=== PATIENT | female | born 1980 | race Caucasian/White ===

== ENCOUNTER 2017-11-07 12:14 | Emergency (ER) | payer MEDICARE, BC ==
[2017-11-07] MEDS ORDERED: HYDROCODONE/APAP 5/325MG TABLET PO ONE (12:48)
--- NOTE | 2017-11-07 12:54 | Emergency Department Record ---
History of Present Illness - General Chief Complaint: Knee injury Stated Complaint: FALL/ R KNEE INJURY Time Seen by Provider: 11/07/17 12:33 Source: Patient Mode of Arrival: Ambulatory Limitations: No limitations - History of Present Illness Initial Comments: pt stepped into an uncovered vent and twisted her knee yesterday. she felt a crack. she has difficulty bearing weight. Complaint: Knee injury Onset/Timin -: Days(s) Injury: Knee: Right Type of Injury: Blunt Place: Home Severity: Mild Severity scale (1-10): 8 Improves With: Immobilization Worsens With: Weight bearing Context: Fall, Walking Associated Symptoms: Unable to bear weight Treatments Prior to Arrival: Cold therapy - Related Data Previous Rx's Medication Instructions Recorded Hydrocodone/Acetaminophen [[place] 1 each PO Q6HR #7 tablet 11/07/17 5-325 Tablet] Allergies Allergy/AdvReac Type Severity Reaction Status Date / Time adhesive tape Allergy RASH Verified 11/07/17 12:45 bee venom protein (honey bee) Allergy ANAPHYLAXIS Verified 11/07/17 12:45 Cephalosporins Allergy PT UNSURE Verified 11/07/17 12:45 OF REACTION chlorthalidone Allergy ANAPHYLAXIS Verified 11/07/17 12:45 [From [place]] doxycycline Allergy PT UNSURE Verified 11/07/17 12:45 OF REACTION erythromycin base Allergy PT UNSURE Verified 11/07/17 12:45 OF REACTION iodine Allergy ANAPHYLAXIS Verified 11/07/17 12:45 Latex, Natural Rubber Allergy HIVES Verified 11/07/17 12:45 lisinopril Allergy HYPERSENSIT Verified 11/07/17 12:45 IVITY montelukast [From Singulair] Allergy HIVES Verified 11/07/17 12:45 nickel Allergy RASH Verified 11/07/17 12:45 Penicillins Allergy PT UNSURE Verified 11/07/17 12:41 OF REACTION shellfish derived Allergy ANAPHYLAXIS Verified 11/07/17 12:45 Travel Screening - Travel/Exposure Within Last 30 Days Have you traveled within the last 30 days?: No - Travel/Exposure Within Last Year Have you traveled outside the [place] in the last year?: No - Additonal Travel Details Have you been exposed to anyone with a communicable illness?: No - Travel Symptoms Symptom Screening: None Review of Systems Reviewed: No additional complaints except as noted below Constitutional: Reports: As per HPI. Denies: Chills, Fever, Malaise, Night sweats, Weakness, Weight change Eyes: Reports: As per HPI. Denies: Eye discharge, Eye pain, Photophobia, Vision change ENT: Reports: As per HPI. Denies: Congestion, Dental pain, Ear pain, Epistaxis , Hearing loss, Throat pain Respiratory: Reports: As per HPI. Denies: Cough, Dyspnea, Hemoptysis, Stridor, Wheezes Cardiovascular: Reports: As per HPI. Denies: Arrhythmia, Chest pain, Dyspnea on exertion, Edema, Murmurs, Orthopnea, Palpitations, Paroxysmal nocturnal dyspnea, Rheumatic Fever, Syncope Endocrine: Reports: As per HPI. Denies: Fatigue, Heat or cold intolerance, Polydipsia, Polyuria Gastrointestinal: Reports: As per HPI. Denies: Abdominal pain, Constipation, Diarrhea, Hematemesis, Hematochezia, Melena, Nausea, Vomiting Genitourinary: Reports: As per HPI. Denies: Abnormal menses, Discharge, Dyspareunia, Dysuria, Frequency, Hematuria, Incontinence, Retention, Urgency Musculoskeletal: Reports: As per HPI. Denies: Arthralgia, Back pain, Gout, Joint swelling, Myalgia, Neck pain Skin: Reports: As per HPI. Denies: Bruising, Change in color, Change in hair/ nails, Lesions, Pruritus, Rash Neurological: Reports: As per HPI. Denies: Abnormal gait, Confusion, Headache, Numbness, Paresthesias, Seizure, Tingling, Tremors, Vertigo, Weakness Psychiatric: Reports: As per HPI. Denies: Anxiety, Auditory hallucinations, Depression, Homicidal thoughts, Suicidal thoughts, Visual hallucinations Hematological/Lymphatic: Reports: As per HPI. Denies: Anemia, Blood Clots, Easy bleeding, Easy bruising, Swollen glands Past Medical History - SOCIAL HISTORY Smoking Status: Current every day smoker Alcohol Use: Rare Drug Use: None - RESPIRATORY Hx Respiratory Disorders: Yes Hx Asthma: Yes - CARDIOVASCULAR Hx Cardio Disorders: Yes Hx Abnormal EKG: Yes Comment:: POTS - NEURO Hx Neuro Disorders: Yes Comment:: TBI left atrophy frontal lobe, anterior pituitary gland - GI Hx GI Disorders: Yes Hx Hiatal Hernia: Yes Hx Irritable Bowel: Yes Hx Ulcer: Yes - Hx Genitourinary Disorders: No - ENDOCRINE Hx Endocrine Disorders: Yes Hx Diabetes: Yes (T2) Hx Thyroid Disease: No - MUSCULOSKELETAL Hx Musculoskeletal Disorders: Yes Hx Back Injury: Yes (C1 C2 fracture L2-S1 Fracture) - PSYCH Hx Psych Problems: Yes Hx Anxiety: Yes Hx Depression: Yes Comment:: PTSD/ADD - HEMATOLOGY/ONCOLOGY Hx Hematology/Oncology Disorders: Yes Hx Anemia: Yes Family Medical History Any Significant Family History?: No Physical Exam - General General Appearance: Alert, Oriented x3, Cooperative, Mild distress - Head Head exam: Normal inspection - Eye Eye exam: Normal appearance, PERRL, EOMI Pupils: Normal accommodation - ENT ENT exam: Normal exam, Mucous membranes moist, Normal external ear exam, Normal orophraynx Ear exam: Normal external inspection. negative: External canal tenderness Nasal Exam: Normal inspection. negative: Discharge, Sinus tenderness Mouth exam: Normal external inspection, Tongue normal Teeth exam: Normal inspection. negative: Dental caries Throat exam: Normal inspection. negative: Tonsillar erythema, Tonsillar exudate - Neck Neck exam: Normal inspection, Full ROM. negative: Tenderness - Respiratory Respiratory exam: Normal lung sounds bilaterally. negative: Respiratory distress - Cardiovascular Cardiovascular Exam: Regular rate, Normal rhythm, Normal heart sounds - GI/Abdominal GI/Abdominal exam: Soft, Normal bowel sounds. negative: Tenderness - Rectal Rectal exam: Deferred - exam: Deferred - Extremities Extremities exam: Normal inspection, Full ROM, Joint swelling, Normal capillary refill, Tenderness - Back Back exam: Reports: Normal inspection, Full ROM. Denies: Muscle spasm, Rash noted, Tenderness - Neurological Neurological exam: Alert, CN II-XII intact, Normal gait, Oriented X3 - Psychiatric Psychiatric exam: Normal affect, Normal mood - Skin Skin exam: Dry, Intact, Normal color, Warm Course Vital Signs 11/07/17 12:27 Temperature 98.8 F Pulse Rate 110 H Respiratory 20 Rate Blood Pressure 124/84 Pulse Ox 97 Disposition Disposition: Discharge Clinical Impression: ACL (anterior cruciate ligament) tear Qualifiers: Encounter type: initial encounter Laterality: right Qualified Code(s): S83.511A - Sprain of anterior cruciate ligament of right knee, initial encounter Disposition: Home, Self-Care Condition: (1) Good Instructions: ACL Injury (ED), Knee Immobilizer (ED) Additional Instructions: follow up with dr selby. return sooner if worse. ice and elevate. motrin for pain Prescriptions: Hydrocodone/Acetaminophen [[place] 5-325 Tablet] 1 each PO Q6HR #7 tablet Forms: Patient Portal Access Quality - Quality Measures Quality Measures: N/A - Blood Pressure Screening Does Patient Have Any of the Following: No Blood Pressure Classification: Pre-Hypertensive BP Reading Systolic Measurement: 124 Diastolic Measurement: 84 Screening for High Blood Pressure: < Pre-Hypertensive BP, F/U Documented > [ G8950] Pre-Hypertensive Follow-up Interventions: Follow-up with rescreen every year.
--- NOTE | 2017-11-07 14:22 | Emergency Department Record ---
History of Present Illness - General Chief Complaint: Knee injury Stated Complaint: FALL/ R KNEE INJURY Time Seen by Provider: 11/07/17 12:33 Source: Patient Mode of Arrival: Ambulatory Limitations: No limitations - History of Present Illness Onset/Timin -: Days(s) Injury: Knee: Right Type of Injury: Blunt Place: Home Severity: Mild Severity scale (1-10): 8 Improves With: Immobilization Worsens With: Weight bearing Context: Fall, Walking Associated Symptoms: Unable to bear weight Treatments Prior to Arrival: Cold therapy - Related Data Previous Rx's Medication Instructions Recorded Hydrocodone/Acetaminophen [[place] 1 each PO Q6HR #7 tablet 11/07/17 5-325 Tablet] Allergies Allergy/AdvReac Type Severity Reaction Status Date / Time adhesive tape Allergy RASH Verified 11/07/17 12:45 bee venom protein (honey bee) Allergy ANAPHYLAXIS Verified 11/07/17 12:45 Cephalosporins Allergy PT UNSURE Verified 11/07/17 12:45 OF REACTION chlorthalidone Allergy ANAPHYLAXIS Verified 11/07/17 12:45 [From [place]] doxycycline Allergy PT UNSURE Verified 11/07/17 12:45 OF REACTION erythromycin base Allergy PT UNSURE Verified 11/07/17 12:45 OF REACTION iodine Allergy ANAPHYLAXIS Verified 11/07/17 12:45 Latex, Natural Rubber Allergy HIVES Verified 11/07/17 12:45 lisinopril Allergy HYPERSENSIT Verified 11/07/17 12:45 IVITY montelukast [From Singulair] Allergy HIVES Verified 11/07/17 12:45 nickel Allergy RASH Verified 11/07/17 12:45 Penicillins Allergy PT UNSURE Verified 11/07/17 12:41 OF REACTION shellfish derived Allergy ANAPHYLAXIS Verified 11/07/17 12:45 Travel Screening - Travel/Exposure Within Last 30 Days Have you traveled within the last 30 days?: No - Travel/Exposure Within Last Year Have you traveled outside the [place] in the last year?: No - Additonal Travel Details Have you been exposed to anyone with a communicable illness?: No - Travel Symptoms Symptom Screening: None Review of Systems Constitutional: Reports: As per HPI. Denies: Chills, Fever, Malaise, Night sweats, Weakness, Weight change Eyes: Reports: As per HPI. Denies: Eye discharge, Eye pain, Photophobia, Vision change ENT: Reports: As per HPI. Denies: Congestion, Dental pain, Ear pain, Epistaxis , Hearing loss, Throat pain Respiratory: Reports: As per HPI. Denies: Cough, Dyspnea, Hemoptysis, Stridor, Wheezes Cardiovascular: Reports: As per HPI. Denies: Arrhythmia, Chest pain, Dyspnea on exertion, Edema, Murmurs, Orthopnea, Palpitations, Paroxysmal nocturnal dyspnea, Rheumatic Fever, Syncope Endocrine: Reports: As per HPI. Denies: Fatigue, Heat or cold intolerance, Polydipsia, Polyuria Gastrointestinal: Reports: As per HPI. Denies: Abdominal pain, Constipation, Diarrhea, Hematemesis, Hematochezia, Melena, Nausea, Vomiting Genitourinary: Reports: As per HPI. Denies: Abnormal menses, Discharge, Dyspareunia, Dysuria, Frequency, Hematuria, Incontinence, Retention, Urgency Musculoskeletal: Reports: As per HPI. Denies: Arthralgia, Back pain, Gout, Joint swelling, Myalgia, Neck pain Skin: Reports: As per HPI. Denies: Bruising, Change in color, Change in hair/ nails, Lesions, Pruritus, Rash Neurological: Reports: As per HPI. Denies: Abnormal gait, Confusion, Headache, Numbness, Paresthesias, Seizure, Tingling, Tremors, Vertigo, Weakness Psychiatric: Reports: As per HPI. Denies: Anxiety, Auditory hallucinations, Depression, Homicidal thoughts, Suicidal thoughts, Visual hallucinations Hematological/Lymphatic: Reports: As per HPI. Denies: Anemia, Blood Clots, Easy bleeding, Easy bruising, Swollen glands Past Medical History - SOCIAL HISTORY Smoking Status: Current every day smoker Alcohol Use: Rare Drug Use: None - RESPIRATORY Hx Respiratory Disorders: Yes Hx Asthma: Yes - CARDIOVASCULAR Hx Cardio Disorders: Yes Hx Abnormal EKG: Yes Comment:: POTS - NEURO Hx Neuro Disorders: Yes Comment:: TBI left atrophy frontal lobe, anterior pituitary gland - GI Hx GI Disorders: Yes Hx Hiatal Hernia: Yes Hx Irritable Bowel: Yes Hx Ulcer: Yes - Hx Genitourinary Disorders: No - ENDOCRINE Hx Endocrine Disorders: Yes Hx Diabetes: Yes (T2) Hx Thyroid Disease: No - MUSCULOSKELETAL Hx Musculoskeletal Disorders: Yes Hx Back Injury: Yes (C1 C2 fracture L2-S1 Fracture) - PSYCH Hx Psych Problems: Yes Hx Anxiety: Yes Hx Depression: Yes Comment:: PTSD/ADD - HEMATOLOGY/ONCOLOGY Hx Hematology/Oncology Disorders: Yes Hx Anemia: Yes Family Medical History Any Significant Family History?: No Physical Exam - General Limitations: No limitations Course Vital Signs 11/07/17 12:27 Temperature 98.8 F Pulse Rate 110 H Respiratory 20 Rate Blood Pressure 124/84 Pulse Ox 97 Disposition Clinical Impression: ACL (anterior cruciate ligament) tear Qualifiers: Encounter type: initial encounter Laterality: right Qualified Code(s): S83.511A - Sprain of anterior cruciate ligament of right knee, initial encounter Disposition: Home, Self-Care Condition: (1) Good Instructions: ACL Injury (ED), Knee Immobilizer (ED) Additional Instructions: follow up with orthopedics. return sooner if worse. ice and elevate. motrin for pain Prescriptions: Hydrocodone/Acetaminophen [[place] 5-325 Tablet] 1 each PO Q6HR #7 tablet Forms: Patient Portal Access Quality - Quality Measures Quality Measures: N/A - Blood Pressure Screening Does Patient Have Any of the Following: No Blood Pressure Classification: Pre-Hypertensive BP Reading Systolic Measurement: 124 Diastolic Measurement: 84 Screening for High Blood Pressure: < Pre-Hypertensive BP, F/U Documented > [ G8950] Pre-Hypertensive Follow-up Interventions: Follow-up with rescreen every year.
--- NOTE | 2017-11-09 10:00 | RADIOLOGY REPORT ---
EXAM: RIGHT KNEE, FOUR VIEWS HISTORY: PAIN POST INJURY. TECHNIQUE: Four views of the right knee were obtained. Comparison: None. FINDINGS: There is normal bone mineralization. No acute fracture, dislocation , or destructive bone lesion is seen. Mild osteoarthritic changes of the medial and patellofemoral compartments are suggested. The articular relations are otherwise maintained. There is a moderate sized suprapatellar joint effusion. There is a chronic ossicle at the level of the distal patellar tendon near its insertion on the tibial tuberosity. This measures 1.8 x 0.9 cm. IMPRESSION: 1. NO ACUTE FRACTURE NOR DISLOCATION IDENTIFIED. THERE IS, HOWEVER, A MODERATE SIZED SUPRAPATELLAR JOINT EFFUSION. 2. MILD OSTEOARTHRITIC CHANGES OF THE MEDIAL AND PATELLOFEMORAL COMPARTMENTS. 3. CHRONIC APPEARING OSSICLE AT THE PATELLAR TENDON INSERTION ON THE TIBIAL TUBEROSITY. JOB NUMBER: [id number] AND [id number] [facility]
== END 2017-11-07 14:59 | disposition home or self-care (01) ==
LOC: ER 12:14
DX: S83.511A Sprain of anterior cruciate ligament of right knee, initial encounter (principal); Q79.6 Ehlers-Danlos syndromes; F17.210 Nicotine dependence, cigarettes, uncomplicated; E11.9 Type 2 diabetes mellitus without complications; W17.2XXA Fall into hole, initial encounter; Y93.01 Activity, walking, marching and hiking; Y92.009 Unspecified place in unspecified non-institutional (private) residence as the place of occurrence of the external cause
CPT/HCPCS: 99283